=== PATIENT | female | born 1980 | race Hispanic/Latino ===

== ENCOUNTER 2020-06-07 13:01 | Emergency (ER) | payer SELFPAY ==
[2020-06-07 13:36] LABS: Absolute Lymphocytes (CBC) 1.6 K/uL (0.7-4.9); Basophils % 0.6 % (0-1.3); Lymphocytes % 18.6 % (15.3-44.8); MPV 7.9 fL (7.6-11.3); RBC Red Blood Cell Count 4.55 M/uL (3.86-4.86)
[2020-06-07] MEDS ORDERED: MORPHINE 4 MG/ML SYR ONE ×2 (13:42→14:32)
[2020-06-07] MEDS ORDERED: ONDANSETRON 4 MG/2 ML VIAL ONE (13:42)
[2020-06-07] MEDS ORDERED: NA CHLORIDE 0.9% 1,000 ML ONE (13:42)
[2020-06-07 13:55] LABS: ALT/SGPT 22 U/L (12-78); AST/SGOT 12 U/L (15-37); Alkaline Phosphatase 78 U/L (45-117); BUN Blood Urea Nitrogen 19 mg/dL (7-18); Bicarbonate 29 mmol/L (21-32); Bilirubin Direct < 0.1 mg/dL (0-0.2); Bilirubin Total 0.2 mg/dL (0.2-1.0); Glucose Level 94 mg/dL (74-106); Lipase 123 U/L (73-393); Potassium 3.6 mmol/L (3.5-5.1); Protein, Total 8.2 g/dL (6.4-8.2); Sodium Level 139 mmol/L (136-145)
[2020-06-07 13:55] LABS: Urine Blood 1+ (NEG); Urine Glucose NEGATIVE (NEG); Urine Protein NEGATIVE (NEG)
--- NOTE | 2020-06-07 14:18 | RAD REPORT ---
EXAM DESCRIPTION: US - Abdomen Exam Limited - 06/07/2020 2:11 pm CLINICAL HISTORY: ABD PAIN COMPARISON: CT ABD PELVIS W CONTRAST dated 06/06/2013 FINDINGS: No gallstones, sludge or other abnormalities within the gallbladder lumen. There is no wal l thickening or pericholecystic fluid. No common duct stone or biliary tree dilatation identified. IMPRESSION: Normal gallbladder and biliary tree ultrasound.
--- NOTE | 2020-06-07 15:22 | RAD REPORT ---
EXAM DESCRIPTION: CT - Abdomen Pelvis W Contrast - 06/07/2020 2:39 pm CLINICAL HISTORY: ABD PAIN COMPARISON: CT ABD PELVIS W CONTRAST dated 06/06/2013 TECHNIQUE: Biphasic, helical CT imaging of the abdomen and pelvis was performed following 100 ml non -ionic IV contrast. No oral contrast given. All CT scans are performed using dose optimization technique as appropriate and may include automated exposure control or mA/KV adjustment according to patient size. FINDINGS: No suspicious findings in the lung bases. The liver, spleen, and pancreas show no suspicious findings. Liver is borderline fatty infiltrated. N o portal vein abnormality. Gallbladder and biliary tree show no acute findings. Symmetric renal function is seen with no hydronephrosis or suspicious renal mass. No pyelonephritis o r acute parenchymal process. No bladder abnormalities. No adrenal abnormalities. Uterus and ovaries s how no suspicious findings. A 2 centimeter left ovarian cyst is present. No dilated bowel loops or bowel wall thickening. Appendectomy clips are present. No free air, free fl uid or inflammatory stranding. No hernia, mass or bulky lymphadenopathy. No suspicious bony findings. IMPRESSION: Contrast enhanced CT abdomen and pelvis showing no acute or emergent finding.
--- NOTE | 2020-06-07 15:26 | EDPHYS ---
Physician Documentation [facility] Name: Erika Flowers Age: 40 yrs Sex: Female : 1980 Arrival Date: 06/07/2020 Time: 13:04 Bed 6 Private MD: ED Physician Avery Senior HPI: 06/07 13:28 This 40 yrs old Female presents to ER via Ambulatory with complaints of kb Abdominal Pain, Back Pain. 13:28 The patient presents with abdominal pain in the upper abdomen. Onset: The kb symptoms/episode began/occurred 3 hour(s) ago. The symptoms radiate to back. Associated signs and symptoms: Pertinent positives: nausea and vomiting, Pertinent negatives: fever. The symptoms are described as constant. Modifying factors: The symptoms are alleviated by nothing, the symptoms are aggravated by nothing. Severity of pain: At its worst the pain was moderate in the emergency department the pain is unchanged. The patient has not experienced similar symptoms in the past. The patient has not recently seen a physician. [employer]: 14:11 [facility] N/A - tw2 Historical: - Allergies: 13:09 No Known Allergies; ll1 - PSHx: 13:09 ; ll1 - Immunization history:: Adult Immunizations. - Social history:: Smoking status: Patient denies any tobacco usage or history of. ROS: 13:28 Constitutional: Negative for fever, chills, and weight loss, Cardiovascular: Negative kb for chest pain, palpitations, and edema, Respiratory: Negative for shortness of breath, cough, wheezing, and pleuritic chest pain, Back: Negative for injury and pain, MS/Extremity: Negative for injury and deformity, Skin: Negative for injury, rash, and discoloration, Neuro: Negative for headache, weakness, numbness, tingling, and seizure. 13:28 Abdomen/GI: Positive for abdominal pain, nausea and vomiting, Negative for diarrhea, constipation. Exam: 13:28 Constitutional: This is a well developed, well nourished patient who is awake, alert, kb and in no acute distress. Head/Face: Normocephalic, atraumatic. Chest/axilla: Normal chest wall appearance and motion. Nontender with no deformity. No lesions are appreciated. Cardiovascular: Regular rate and rhythm with a normal S1 and S2. No gallops, murmurs, or rubs. Normal PMI, no JVD. No pulse deficits. Respiratory: Lungs have equal breath sounds bilaterally, clear to auscultation and percussion. No rales, rhonchi or wheezes noted. No increased work of breathing, no retractions or nasal flaring. Skin: Warm, dry with normal turgor. Normal color with no rashes, no lesions, and no evidence of cellulitis. MS/ Extremity: Pulses equal, no cyanosis. Neurovascular intact. Full, normal range of motion. Neuro: Awake and alert, GCS 15, oriented to person, place, time, and situation. Cranial nerves II-XII grossly intact. Motor strength 5/5 in all extremities. Sensory grossly intact. Cerebellar exam normal. Normal gait. 13:28 Abdomen/GI: Inspection: abdomen appears normal, Bowel sounds: normal, in all quadrants, Palpation: soft, in all quadrants, mild abdominal tenderness, in the right upper quadrant, moderate abdominal tenderness, in the epigastric area. Vital Signs: 13:09 BP 154 / 94; Pulse 82; Resp 17; Temp 97.4; Pulse Ox 100% ; Pain 10/10; ll1 14:45 BP 128 / 87; Pulse 72; Resp 17; Pulse Ox 100% on R/A; tw2 15:42 BP 125 / 84; Pulse 63; Resp 17; Pulse Ox 100% on R/A; tw2 MDM: 13:11 Patient medically screened. 13:29 Data reviewed: vital signs, nurses notes. Data interpreted: Pulse oximetry: on room air kb is 100 %. Interpretation: normal. 15:25 Counseling: I had a detailed discussion with the patient and/or guardian regarding: the kb historical points, exam findings, and any diagnostic results supporting the discharge/admit diagnosis, lab results, radiology results, the need for outpatient follow up, a saw filer, to return to the emergency department if symptoms worsen or persist or if there are any questions or concerns that arise at home. 06/07 13:14 Order name: Basic Metabolic Panel; Complete Time: 13:57 kb 06/07 13:14 Order name: CBC with Diff; Complete Time: 13:51 kb 06/07 13:14 Order name: Hepatic Function; Complete Time: 13:57 kb 06/07 13:14 Order name: Lipase; Complete Time: 13:57 kb 06/07 13:44 Order name: Urine Dipstick--Ancillary (enter results); Complete Time: 13:57 eb 06/07 13:44 Order name: Urine --Ancillary (enter results); Complete Time: 13:57 eb 06/07 13:14 Order name: IV Saline Lock; Complete Time: 13:36 kb 06/07 13:14 Order name: Labs collected and sent; Complete Time: 13:36 kb 06/07 13:18 Order name: US Abdomen Limited; Complete Time: 14:19 kb 06/07 14:20 Order name: CT Abd/Pelvis - IV Contrast Only; Complete Time: 15:25 kb 06/07 13:14 Order name: Urine Dipstick-Ancillary (obtain specimen); Complete Time: 13:55 kb 06/07 13:14 Order name: Urine Test (obtain specimen); Complete Time: 13:55 kb Administered Medications: 13:30 Drug: Zofran (Ondansetron) 4 mg Route: IVP; Site: right antecubital; tw2 14:16 Follow up: Response: No adverse reaction; Nausea is decreased tw2 13:30 Drug: NS 0.9% 1000 ml Route: IV; Rate: 1000 ml; Site: right antecubital; tw2 15:57 Follow up: Response: No adverse reaction; IV Status: Completed infusion; IV Intake: tw2 1000ml 13:33 Drug: morphine 4 mg Route: IVP; Site: right antecubital; tw2 14:16 Follow up: Response: No adverse reaction; Pain is unchanged, physician notified; RASS: tw2 Alert and Calm (0) 14:22 Drug: morphine 4 mg {Note: RASS 0.} Route: IVP; Site: right antecubital; tw2 15:00 Follow up: Response: No adverse reaction; Pain is decreased; RASS: Alert and Calm (0) tw2 Disposition: 06/07/20 15:26 Discharged to Home. Impression: Upper abdominal pain, unspecified. - Condition is Stable. - Discharge Instructions: Biliary Colic, Adult, Abdominal Pain, Adult, [id number]. - Prescriptions for Bentyl 20 mg Oral Tablet - take 1 tablet by ORAL route every 6 hours As needed; 20 tablet. Zofran 4 mg Oral Tablet - take 1 tablet by ORAL route every 6 hours As needed; 20 tablet. - Medication Reconciliation Form, Thank You Letter, Antibiotic Education, Prescription Opioid Use, Work release form form. - Follow up: Private Physician; When: 2 - 3 days; Reason: Recheck today's complaints, Continuance of care, Re-evaluation by your physician. Follow up: Emergency Department; When: As needed; Reason: Worsening of condition. Addendum: 06/08/2020 17:54 Co-signature as Attending Physician, Avery Senior MD I agree with the assessment and c ramírez plan of care. Signatures: Dispatcher [employer] EDAlma Rosa Hwang, JAMES-C JAMES-Avery Salazar MD MD cha Wise, Tara, RN RN tw2 Panchito Renteria RN RN ll1 Corrections: (The following items were deleted from the chart) 06/07 15:58 15:26 06/07/2020 15:26 Discharged to Home. Impression: Upper abdominal pain, tw2 unspecified. Condition is Stable. Forms are Medication Reconciliation Form, Thank You Letter, Antibiotic Education, Prescription Opioid Use. Follow up: Private Physician; When: 2 - 3 days; Reason: Recheck today's complaints, Continuance of care, Re-evaluation by your physician. Follow up: Emergency Department; When: As needed; Reason: Worsening of condition. kb
--- NOTE | 2020-06-07 15:26 | ER ---
Nurse's Notes [facility] Name: Erika Flowers Age: 40 yrs Sex: Female : 1980 Arrival Date: 06/07/2020 Time: 13:04 Bed 6 Private MD: Diagnosis: Upper abdominal pain, unspecified Presentation: 06/07 13:09 Chief complaint: Patient states: Upper abd pain that radiates through to back for 1 ll1 days. + N/V x 1 today. No fever. Coronavirus screen: Client denies travel out of the [place] in the last 14 days. At this time, the client does not indicate any symptoms associated with coronavirus-19. Ebola Screen: Patient denies travel to an Ebola-affected area in the 21 days before illness onset. Initial Sepsis Screen: Does the patient meet any 2 criteria? No. Patient's initial sepsis screen is negative. Does the patient have a suspected source of infection? Yes: Acute abdominal pain. Risk Assessment: Do you want to hurt yourself or someone else? Patient reports no desire to harm self or others. Onset of symptoms was June 07, 2020. 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 - Social history:: Smoking status: Patient denies any tobacco usage or history of. Screenin:11 Abuse screen: Denies threats or abuse. Nutritional screening: No deficits noted. tw2 Tuberculosis screening: No symptoms or risk factors identified. Fall Risk None identified. Assessment: 13:30 General: Appears uncomfortable, Behavior is calm, cooperative, appropriate for age. tw2 Pain: Complains of pain in abdomen and epigastric area and right upper quadrant. Neuro: Level of Consciousness is awake, alert, obeys commands, Oriented to person, place, time, situation. Cardiovascular: Heart tones S1 S2 Patient's skin is warm and dry. Respiratory: Airway is patent Respiratory effort is even, unlabored, Respiratory pattern is regular, symmetrical, Breath sounds are clear bilaterally. GI: Abdomen is round non-distended, obese, Bowel sounds present X 4 quads. Abd is soft X 4 quads Abdomen is tender to palpation in right upper quadrant Reports upper abdominal pain, epigastric pain, nausea. : No signs and/or symptoms were reported regarding the genitourinary system. EENT: No signs and/or symptoms were reported regarding the EENT system. Derm: No signs and/or symptoms reported regarding the dermatologic system. Musculoskeletal: Range of motion: intact in all extremities. 14:45 Reassessment: Patient appears in no apparent distress at this time. No changes from tw2 previously documented assessment. Patient and/or family updated on plan of care and expected duration. Pain level reassessed. Patient is alert, oriented x 3, equal unlabored respirations, skin warm/dry/pink. 15:43 Reassessment: Patient appears in no apparent distress at this time. No changes from tw2 previously documented assessment. Patient and/or family updated on plan of care and expected duration. Pain level reassessed. Patient is alert, oriented x 3, equal unlabored respirations, skin warm/dry/pink. 15:57 Reassessment: Patient appears in no apparent distress at this time. No changes from tw2 previously documented assessment. Patient and/or family updated on plan of care and expected duration. Pain level reassessed. Patient is alert, oriented x 3, equal unlabored respirations, skin warm/dry/pink. Vital Signs: 13:09 BP 154 / 94; Pulse 82; Resp 17; Temp 97.4; Pulse Ox 100% ; Pain 10/10; ll1 14:45 BP 128 / 87; Pulse 72; Resp 17; Pulse Ox 100% on R/A; tw2 15:42 BP 125 / 84; Pulse 63; Resp 17; Pulse Ox 100% on R/A; tw2 ED Course: 13:04 Patient arrived in ED. mr 13:05 Alma Rosa Brown FNP-C [facility]. kb 13:05 Avery Senior MD is Attending Physician. kb 13:10 Triage completed. ll1 13:10 Arm band placed on Patient placed in an exam room, on a stretcher. ll1 13:11 Radha Durand, NILDA is Primary Nurse. tw2 13:11 Placed in gown. Bed in low position. Call light in reach. tw2 13:26 Radiology exam delayed due to IV insertion attempt and/or patient not having aa4 appropriate IV at this time. 13:30 Missed attempt(s): 20 gauge in left Bleeding controlled, band aid applied, catheter tip tw2 intact. Inserted saline lock: 20 gauge in right antecubital area, using aseptic technique. Blood collected. 14:12 US Abdomen Limited In Process Unspecified. EDMS 14:40 CT Abd/Pelvis - IV Contrast Only In Process Unspecified. EDMS 15:57 No provider procedures requiring assistance completed. IV discontinued, intact, tw2 bleeding controlled, No redness/swelling at site. Pressure dressing applied. Administered Medications: 13:30 Drug: Zofran (Ondansetron) 4 mg Route: IVP; Site: right antecubital; tw2 14:16 Follow up: Response: No adverse reaction; Nausea is decreased tw2 13:30 Drug: NS 0.9% 1000 ml Route: IV; Rate: 1000 ml; Site: right antecubital; tw2 15:57 Follow up: Response: No adverse reaction; IV Status: Completed infusion; IV Intake: tw2 1000ml 13:33 Drug: morphine 4 mg Route: IVP; Site: right antecubital; tw2 14:16 Follow up: Response: No adverse reaction; Pain is unchanged, physician notified; RASS: tw2 Alert and Calm (0) 14:22 Drug: morphine 4 mg {Note: RASS 0.} Route: IVP; Site: right antecubital; tw2 15:00 Follow up: Response: No adverse reaction; Pain is decreased; RASS: Alert and Calm (0) tw2 Intake: 15:57 IV: 1000ml; Total: 1000ml. tw2 Outcome: 15:26 Discharge ordered by MD. newell 15:57 Discharged to home ambulatory, with family. tw2 15:57 Condition: stable 15:57 Discharge instructions given to patient, family, Instructed on discharge instructions, follow up and referral plans. medication usage, Demonstrated understanding of instructions, follow-up care, medications, Prescriptions given X 2. 15:58 Patient left the ED. tw2 Signatures: Dispatcher [employer] EDMS Alma Rosa Brown, EM PHYSICIANQuitaC EM PHYSICIAN-Nora Selina Casillas Amanda aa4 Radha Durand RN RN tw2 Panchito Renteria RN RN ll1
[2020-06-07 16:16] VITALS: TEMP 97.4; O2SAT 100
[2020-06-07 16:26] VITALS: BP 125/84
== END 2020-06-07 15:58 | disposition home or self-care (01) ==
LOC: ER 13:01
DX: R10.10 Upper abdominal pain, unspecified (principal)
CPT/HCPCS: 36415; 74177; 76705; 80048; 80076; 81003; 81025; 83690; 85025; 96361; 96374; 96375; 99284; J2405; J7030; Q9967